=== PATIENT | female | born 2000 | race Caucasian/White ===

== ENCOUNTER → 2021-04-10 13:21 | Outpatient (BNVA) | payer BC, MEDICAID, SELFPAY | PROVIDERS: Visit Provider Obstetrics & Gynecology | DX: O20.9 Hemorrhage in early pregnancy, unspecified (principal) | CPT/HCPCS: 84702; 86850; 86900 ==

== ENCOUNTER 2021-04-12 11:12 | Outpatient (CLI) | payer BC, MEDICAID, SELFPAY ==
--- NOTE | 2021-04-12 11:21 | US_ITS ---
WS: [id number] EARLY OBSTETRICAL ULTRASOUND (<14 WEEKS). HISTORY: SUPERVISION OF NORMAL COMPARISON: None available. Single intrauterine gestational sac is identified. Cardiac activity at 122 BPM. [place]-rump length gopi sures 0.9 cm which corresponds to a gestation of 6w6d. Normal-appearing yolk sac and amnion demonstra elliot. No subchorionic hemorrhage. No free fluid. Normal size ovaries with no mass. Small corpus luteum cyst associated with the LEFT ovary. US/US OB <=14 wk fetus w transvag IMPRESSION: 1. Single intrauterine gestation of 7 weeks 0 days with an EDC of 11/29/2021. 2. No complications. Normal cardiac activity.
== END 2021-04-12 11:13 | disposition home or self-care (01) ==
LOC: RAD 11:13
PROVIDERS: Visit Provider Obstetrics & Gynecology
DX: Z34.91 Encounter for supervision of normal pregnancy, unspecified, first trimester (principal); Z3A.01 Less than 8 weeks gestation of pregnancy
CPT/HCPCS: 76801; 76817

== ENCOUNTER → 2021-04-23 09:33 | Outpatient (BNVA) | payer BC, MEDICAID, SELFPAY | PROVIDERS: Visit Provider Nurse Practitioner Women's Health | DX: Z34.90 Encounter for supervision of normal pregnancy, unspecified, unspecified trimester (principal) | CPT/HCPCS: 81000 ==

== ENCOUNTER → 2021-05-07 11:25 | Outpatient (BNVA) | payer BC, MEDICAID, SELFPAY | PROVIDERS: Visit Provider Obstetrics & Gynecology | DX: O99.211 Obesity complicating pregnancy, first trimester (principal) | CPT/HCPCS: 80307; 81000; 82950; 85027; 86592; 86762; 86803; 87086; 87340; 87806 ==

== ENCOUNTER → 2021-05-21 12:20 | Outpatient (BNVA) | payer BC, MEDICAID, SELFPAY | PROVIDERS: Visit Provider Obstetrics & Gynecology | DX: Z34.80 Encounter for supervision of other normal pregnancy, unspecified trimester (principal) | CPT/HCPCS: 81000; 87491; 87591; 88175 ==

== ENCOUNTER → 2021-06-21 14:28 | Outpatient (BNVA) | payer BC, MEDICAID, SELFPAY | PROVIDERS: Visit Provider Obstetrics & Gynecology | DX: O99.211 Obesity complicating pregnancy, first trimester (principal) | CPT/HCPCS: 81000 ==

== ENCOUNTER → 2021-07-17 15:09 | Outpatient (BNVA) | payer BC, MEDICAID, SELFPAY | PROVIDERS: Visit Provider Obstetrics & Gynecology | DX: Z34.80 Encounter for supervision of other normal pregnancy, unspecified trimester (principal) | CPT/HCPCS: 81000 ==

== ENCOUNTER → 2021-08-09 08:06 | Outpatient (BNVA) | payer BC, MEDICAID, SELFPAY | PROVIDERS: Visit Provider Nurse Practitioner Women's Health | DX: O99.211 Obesity complicating pregnancy, first trimester (principal) | CPT/HCPCS: 81000 ==

== ENCOUNTER → 2021-09-11 13:59 | Outpatient (BNVA) | payer BC, MEDICAID, SELFPAY | PROVIDERS: Visit Provider Obstetrics & Gynecology | DX: Z34.80 Encounter for supervision of other normal pregnancy, unspecified trimester (principal) | CPT/HCPCS: 81000; 82950; 85027 ==

== ENCOUNTER → 2021-10-08 10:18 | Outpatient (BNVA) | payer BC, MEDICAID, SELFPAY | PROVIDERS: Visit Provider Nurse Practitioner Women's Health | DX: O99.211 Obesity complicating pregnancy, first trimester (principal); N76.0 Acute vaginitis | CPT/HCPCS: 81000; 87491; 87591; 87661 ==

== ENCOUNTER → 2021-10-17 08:04 | Outpatient (BNVA) | payer BC, MEDICAID, SELFPAY | PROVIDERS: Visit Provider Nurse Practitioner Women's Health | DX: O99.211 Obesity complicating pregnancy, first trimester (principal); N89.8 Other specified noninflammatory disorders of vagina | CPT/HCPCS: 81000 ==

== ENCOUNTER → 2021-10-31 08:30 | Outpatient (BNVA) | payer BC, MEDICAID, SELFPAY | PROVIDERS: Visit Provider Nurse Practitioner Women's Health | DX: Z34.80 Encounter for supervision of other normal pregnancy, unspecified trimester (principal) | CPT/HCPCS: 81000; 87081 ==

== ENCOUNTER 2021-11-02 15:20 | Outpatient (CLI) | payer BC, MEDICAID, SELFPAY ==
[2021-11-02 15:30] VITALS: BMI 39.1
[2021-11-02 15:39] VITALS: TEMP 36.2
[2021-11-02 15:40] VITALS: BP 115/68; PULSE 108
[2021-11-02 15:53] VITALS: RESP 17
[2021-11-02 16:13] VITALS: BP 110/63; PULSE 75
[2021-11-02 16:20] VITALS: BP 110/63; PULSE 75
== END 2021-11-02 16:20 | disposition home or self-care (01) ==
LOC: OPOB 15:26 → OBGYN 15:27
PROVIDERS: Visit Provider Obstetrics & Gynecology
DX: O26.899 Other specified pregnancy related conditions, unspecified trimester (principal); Z3A.00 Weeks of gestation of pregnancy not specified; R10.9 Unspecified abdominal pain
CPT/HCPCS: 59025; 99211

== ENCOUNTER → 2021-11-11 10:11 | Outpatient (BNVA) | payer BC, MEDICAID, SELFPAY | PROVIDERS: Visit Provider Obstetrics & Gynecology | DX: Z34.80 Encounter for supervision of other normal pregnancy, unspecified trimester (principal) | CPT/HCPCS: 81000 ==

== ENCOUNTER → 2021-11-18 10:19 | Outpatient (BNVA) | payer BC, MEDICAID, SELFPAY | PROVIDERS: Visit Provider Obstetrics & Gynecology | DX: Z34.80 Encounter for supervision of other normal pregnancy, unspecified trimester (principal) | CPT/HCPCS: 81000 ==

== ENCOUNTER 2021-11-25 19:08 | Inpatient (IN) | payer BC, MEDICAID, SELFPAY ==
[2021-11-25] VITALS (11 sets, daily range): BP systolic 116–149; BP diastolic 66–85; PULSE 63–81; RESP 16; TEMP 36.2–36.5; BMI 36.8
[2021-11-25] MEDS: lactated ringers 1,000 ML 999 ML IV (20:10)
[2021-11-25 20:14] LABS: Basophils % 0.3 %; Eosinophils # 0.1 10^3/uL (0.0-0.8); Eosinophils % 0.7 %; Lymphocytes # 2.1 10^3/uL (0.8-4.8); Lymphocytes % 17.3 %; Mean Corpuscular HGB Conc 34.3 g/dL (30.0-36.0); Mean Corpuscular Hemoglobin 31.8 pg (28.0-34.0); Mean Corpuscular Volume 92.8 fl (81-99); Mean Platelet Volume 11.5 fL (7.4-10.4); Monocytes # 0.7 10^3/uL (0.2-0.9); Monocytes % 5.5 %; Neutrophils % 75.7 %; Nucleated Red Blood Cells % 0 %; Platelet Count 212 10^3/cmm (130-400); Red Blood Count 3.77 10^6/uL (4.1-5.3); Red Cell Distribution Width 13.5 % (12.1-15.1); White Blood Count 12.3 10^3/uL (4.0-10.0)
[2021-11-25] MEDS: dextrose 5%-lactated ringers 1,000 ML 125 ML IV (20:45)
[2021-11-25] MEDS: miSOPROStol 100 mcg tablet 25 MCG VAGINAL (21:00)
[2021-11-26] VITALS (100 sets, daily range): BP systolic 76–146; BP diastolic 47–91; PULSE 50–141; RESP 16–18; TEMP 35.3–37.4; O2SAT 97–100
[2021-11-26] MEDS: lactated ringers 1,000 ML 999 ML IV ×3 (02:00→08:57)
[2021-11-26] MEDS: oxytocin 30 UNIT/500 ML BAG IV (06:33)
--- NOTE | 2021-11-26 07:52 | PM.OPHPUD ---
Labor & Delivery H&P Update Date of Procedure: November 26, 2021 Date H&P Performed: 11/25/21 H&P update information: I have reviewed H&P completed within last 30 days, I have examined patient prior to procedure, Changes to prior documentation as noted here and H&P is in [facility] EMR on date indicated Changes to previous documentation: Cervix is 4 cm 70% and -2 station, COVID-negative Admission Diagnosis:
--- NOTE | 2021-11-26 08:42 | P.ANESASSM_ITS ---
Pre-Anesthetic Assessment Pre-Anesthetic Assessment: Height/Weight: Height 1.73 m Weight 109.769 kg Temp Pulse Resp BP 97.7 F 74 16 125/75 11/26/21 05:45 11/26/21 08:27 11/25/21 19:30 11/26/21 08:27 Preop Diagnosis: Labor pain Was Beta Asif taken within 24 hours: N/A Was Clonidine taken within 24 hours: N/A Last intake: 11/26 Social: Social History: No alcohol and No tobacco Exam: Pre-Anes Outpt Exam: alert, oriented x 3, clear to auscultation bilaterally and regular rate & rhythm Airway: Submandibular: WNL Cervical ROM: WNL MP: 2 Dentition: Full Pulmonary: Pulmonary: None reported CV/HEM: CV/HEM: None reported : : None reported Hepatic: Hepatic: None reported GI: GI: GERD Metabolic: Metabolic: None reported Musc/skel: Musc/skel: None reported Neuropsych: Neuropsych: None reported Anesthetic Plan: ASA status: 2 Anesthesia: Anesthesia Evaluation, Eval. for regional block and Regional (specify below) (Epidural) Risk of > 500 ml blood loss (7ml/kg in children): No Meds/Allergies Current Medications: Current Medications Generic Name Dose Route Start Last Admin Trade Name Freq PRN Reason Stop Dose Admin Dextrose/Lactated Ringer's 1,000 mls @ 125 m ls/hr 11/25/21 19:30 11/25/21 20:45 Dextrose 5%-Lact ated Ringers IV 125 mls/hr .Q8H PRN Administration per label comment s Oxytocin 30 unit in 500 ml s @ 1 mls/hr 11/26/21 06:15 11/26/21 06:50 Pitocin IV 3 milliunit/min .Q24H SLAVA 3 mls/hr Titration Protocol 1 MILLIUNIT/MIN Misoprostol 25 mcg 11/25/21 21:00 11/25/21 21:00 Misoprostol 100 Mcg Tablet VAGINAL 11/26/21 09:01 25 mcg Q4H SLAVA Administration PFSH Anesthesia PFSH: Medical History No pertinent past medical history Denies diabetes, asthma, hypertension, seizures, DVT/PE PCP: Dr. Smotherman Surgical History No pertinent past surgical history Family History Grandfather Diabetes Paternal Hypertension Paternal Denies family history of Colon cancer Ovarian cancer Heart disease Hypercholesteremia Breast cancer Uterine cancer Thyroid disease Stroke Female Reproductive History: Date of last menstrual period: 02/14/21 : 2 Data Anesthesia CBC & Chem 7: 11/25/21 20:05 Other Labs: Laboratory Results - last 48 hr 11/25/21 20:05 WBC 12.3 H RBC 3.77 L Hgb 12.0 Hct 35.0 L MCV 92.8 MCH 31.8 MCHC 34.3 RDW 13.5 Plt Count 212 MPV 11.5 H Neut % (Auto) 75.7 Lymph % (Auto) 17.3 [place] % (Auto) 5.5 Eos % (Auto) 0.7 Baso % (Auto) 0.3 Neut # (Auto) 9.30 H Lymph # (Auto) 2.1 [place] # (Auto) 0.7 Eos # (Auto) 0.1 Baso # (Auto) 0.0 Nucleated RBC % (auto) 0 Nucleated RBCs # 0.0 Cardiac Studies: No Data to Display
--- NOTE | 2021-11-26 09:45 | ANES.PROC ---
Anesthesia Procedures Procedure/Date: 11/26/21 Epidural: Time Out Performed: Yes ([id number]) Consents Signed: Procedure Consent Consent: from patient Lumbar Level: L4-L5 Epidural position: sitting Epidural procedure: sterile prep of area (Chloraprep), negative for paresthesia passed, neg for paresthesia, 1.5% xylocaine 1:200k epi, 0.2% Ropivacaine bolus ml, no systemic response, sterile dressing applied and 0.2% Ropiavacaine @ mls/hr (13) Additional Comments: Patient sat up, prepped and draped in usual fashion. LA skin wheel, Touhy w/ stylet, ligament engaged, using EILEEN technique w/ saline loss at 8 cm, catheter to 14 cm. Negative aspiration, negative test dose. 1 attempt, tolerated well, good block.
[2021-11-26] MEDS: dextrose 5%-lactated ringers 1,000 ML 125 ML IV (12:47)
[2021-11-26] MEDS: ondansetron 2 mg/ML SDV 2 mL 4 MG IVP (13:25)
[2021-11-26] MEDS: lidocaine 2% INJ 20 mL INJECTION (17:10)
--- NOTE | 2021-11-26 17:57 | PM.DELIVERY ---
Delivery Note: Date of delivery: November 26, 2021 - PRE-DELIVERY DIAGNOSIS: 21-year-old 2 para 0-0-1-0 at 39 weeks and 3 days gestation GBS negative, COVID-negative Elective induction of labor at term Obesity with a BMI of 36 POST-DELIVERY DIAGNOSIS: Vaginal delivery on 11/26/2021 PROCEDURE: Vaginal delivery on 11/26/2021 ANESTHESIA: Epidural anesthesia, local anesthesia with 2% lidocaine DELIVERING PHYSICIAN: Nicholas Hanson FACOG PRE-DELIVERY COURSE: Ms. grey is a 21-year-old 2 para 0-0-1-0 at 39 weeks and 3 days who presented to labor and delivery on 11/25/2021 for elective induction of labor. She had no new complaints at time of induction. Cervix was 2 cm, 60% and -2 station unchanged from her previous visit. tracing was category 1 and she had occasional contractions. Induction was started with Cytotec placed at 9 PM. After that she started to have irregular contractions but did not make cervical change but was ifeoma too frequently for Cytotec. She was observed until 6 AM and when she made no further cervical change she was started on Pitocin titrated to a maximum of 17 mIU. With this she started to have regular contractions and growing uncomfortable. Artificial rupture of membranes was performed at 7:09 AM on 11/26/2021 with clear fluid at which time she was 3 to 4 cm, 70% and -2 station, head was well applied. Clear fluid was noted. Epidural was placed shortly after this and she was comfortable. tracing remained category 1. She made progressive cervical change and was 9 cm at 2 PM and fully dilated at 3:24 PM. She was allowed to labor down for about 30 minutes and then set up in lithotomy position ready to push. tracing was category 1 until she started pushing when she had variables. DELIVERY NOTE: She was set up in lithotomy position and was pushing effectively. She was noted to be +3 station and continued pushing well. Perineum was noted to be tight and was staring and decision was made to place an episiotomy. After infiltrating the area with 2% lidocaine the right mediolateral episiotomy was cut without any difficulty. Following this with her next push the head delivered in DELPHINE position, nuchal cord x1 was present which was reduced without any difficulty. The shoulders and rest of the body followed with her next push. The baby's mouth and nose were suctioned and the baby was placed on the mother's belly. Once cord pulsations stopped the cord was clamped and cut. The placenta delivered spontaneously intact with membranes and was discarded. The fundus was noted to be firm and well contracted. The vagina and cervix were inspected and no cervical or sulcal lacerations were noted. The perineum was intact except for the medial lateral episiotomy which was repaired with 3-0 Vicryl in a continuous interlocking fashion. Good hemostasis and reapproximation was obtained. Baby girl, Moe born at 5:02 PM on 11/26/2021 with 8, 8, weighing 7 pounds 7 ounces, 3365 g, 20-1/2 inches long. Placenta was delivered spontaneously intact with membranes. Cotyledons were intact , centrally inserted umbilical cord with 3 vessels noted. Estimated blood loss 350 mL. Complications-none, both baby and mother were left to recover in a stable condition. This documentation was created by [employer] secondary history teacher software (known for inherent secondary history teacher error). Every effort was made to assure accuracy of secondary history teacher. Any obvious errors or omissions should be clarified with the author of the document. History History History 2 Term 1 Miscarriages/Ectopic 1 0 Living Children 1 Other History: 2, Para 1011 SAB x 1 X 1 1--> 06/2020, SAB at 5 weeks gestation, no D&C required 2--> 11/26/2021---> full-term vaginal delivery at 39 weeks and 4 days after induction. [place] [facility] [place] Baby girl(Moe) weighing 7 pounds 7 ounces over right mediolateral episiotomy. No complications. Coding Level of Care Code Acute Patient Account Representative for Toñog Renu
[2021-11-26] MEDS: benzocaine-menthol 78 gm Canister 1 SPRAY TOPICAL (21:06)
[2021-11-26] MEDS: ibuprofen 800 mg tablet PO (21:07)
[2021-11-26] MEDS: lanolin oint 7 gm 1 APPLIC TOPICAL (21:07)
[2021-11-26] MEDS: docusate sodium 100 mg Capsule PO (21:07)
[2021-11-27 01:18] VITALS: BP 115/65; PULSE 66; RESP 16; TEMP 36.4; O2SAT 97
[2021-11-27 05:53] LABS: Hematocrit 32.6 % (37.0-47.0); Mean Corpuscular HGB Conc 33.7 g/dL (30.0-36.0); Mean Corpuscular Hemoglobin 31.9 pg (28.0-34.0); Mean Corpuscular Volume 94.5 fl (81-99); Mean Platelet Volume 11.8 fL (7.4-10.4); Platelet Count 182 10^3/cmm (130-400); Red Blood Count 3.45 10^6/uL (4.1-5.3); Red Cell Distribution Width 13.7 % (12.1-15.1); White Blood Count 16.2 10^3/uL (4.0-10.0)
[2021-11-27 08:00] VITALS: BP 114/81; PULSE 80; RESP 18; TEMP 36.7
[2021-11-27] MEDS: ibuprofen 800 mg tablet PO ×2 (08:24→15:27)
[2021-11-27] MEDS: docusate sodium 100 mg Capsule PO ×2 (08:24→18:13)
[2021-11-27] MEDS: prenatal vitamin Capsule 1 CAP PO (08:24)
--- NOTE | 2021-11-27 14:05 | ANE.PACU2 ---
Inpatient post-anesthesia follow up: Airway intact: Yes Vital signs: Temperature 98.1 F Pulse Rate 80 Respiratory Rate 18 Blood Pressure 114/81 Pulse Oximetry 97 Oxygen Delivery Me thod Room Air Oxygen Flow Rate Fraction of Inspir ed Oxygen Hydration adequate: Yes Nausea and vomiting: No Pain level: 2 Mental status: Baseline
[2021-11-27 15:00] VITALS: BP 118/82; PULSE 60; RESP 18; TEMP 36.8
--- NOTE | 2021-11-27 17:51 | PM.OBGYDC ---
Discharge Providers AIR COMPRESSOR MECHANIC Date of Admission: 11/26/21 09:05 Date of Discharge: 11/28/21 Attending Provider at Admission: Nicholas Thompson MD Attending Provider at Discharge: Nicholas Thompson MD PRE-DELIVERY DIAGNOSIS: 21-year-old 2 para 0-0-1-0 at 39 weeks and 3 days gestation GBS negative, COVID-negative Elective induction of labor at term Obesity with a BMI of 36 POST-DELIVERY DIAGNOSIS: Vaginal delivery on 11/26/2021 PROCEDURE: Vaginal delivery on 11/26/2021 ANESTHESIA: Epidural anesthesia, local anesthesia with 2% lidocaine DELIVERING PHYSICIAN: Nicholas Hanson FACOG PRE-DELIVERY COURSE: Ms. grey is a 21-year-old 2 para 0-0-1-0 at 39 weeks and 3 days who presented to labor and delivery on 11/25/2021 for elective induction of labor. She had no new complaints at time of induction. Cervix was 2 cm, 60% and -2 station unchanged from her previous visit. tracing was category 1 and she had occasional contractions. Induction was started with Cytotec placed at 9 PM. After that she started to have irregular contractions but did not make cervical change but was ifeoma too frequently for Cytotec. She was observed until 6 AM and when she made no further cervical change she was started on Pitocin titrated to a maximum of 17 mIU. With this she started to have regular contractions and growing uncomfortable. Artificial rupture of membranes was performed at 7:09 AM on 11/26/2021 with clear fluid at which time she was 3 to 4 cm, 70% and -2 station, head was well applied. Clear fluid was noted. Epidural was placed shortly after this and she was comfortable. tracing remained category 1. She made progressive cervical change and was 9 cm at 2 PM and fully dilated at 3:24 PM. She was allowed to labor down for about 30 minutes and then set up in lithotomy position ready to push. tracing was category 1 until she started pushing when she had variables. DELIVERY NOTE: She was set up in lithotomy position and was pushing effectively. She was noted to be +3 station and continued pushing well. Perineum was noted to be tight and was staring and decision was made to place an episiotomy. After infiltrating the area with 2% lidocaine the right mediolateral episiotomy was cut without any difficulty. Following this with her next push the head delivered in DELPHINE position, nuchal cord x1 was present which was reduced without any difficulty. The shoulders and rest of the body followed with her next push. The baby's mouth and nose were suctioned and the baby was placed on the mother's belly. Once cord pulsations stopped the cord was clamped and cut. The placenta delivered spontaneously intact with membranes and was discarded. The fundus was noted to be firm and well contracted. The vagina and cervix were inspected and no cervical or sulcal lacerations were noted. The perineum was intact except for the medial lateral episiotomy which was repaired with 3-0 Vicryl in a continuous interlocking fashion. Good hemostasis and reapproximation was obtained. Baby girl, Moe born at 5:02 PM on 11/26/2021 with 8, 8, weighing 7 pounds 7 ounces, 3365 g, 20-1/2 inches long. Placenta was delivered spontaneously intact with membranes. Cotyledons were intact , centrally inserted umbilical cord with 3 vessels noted. Estimated blood loss 350 mL. Complications-none, both baby and mother were left to recover in a stable condition. HOSPITAL COURSE: She underwent an uncomplicated vaginal delivery on 11/26/2021. She did well on day 0 and was ambulating well, tolerating regular diet, voiding freely, passing flatus. She was breast-feeding without difficulty and bonding well with her daughter. Pain was well-controlled with by mouth pain medication. She denied nausea, vomiting, fever, chills, shortness of breath, leg pain. She had moderate vaginal bleeding. On day # 1 she continued to do well with stable vital signs and stable hemoglobin at 11. She was discharged home on day 1 in a stable condition, as she desired early discharge. Warning signs for endometritis, mastitis, DVT/PE were reviewed with her. Post delivery activity restrictions were also reviewed with her at all her questions were answered to her satisfaction. Plans on using natural methods for contraception . EXAM AT DISCHARGE: Gen.: No acute distress Heart: S1-S2 heard, regular rate and rhythm Lungs: Clear to auscultation bilaterally Abdomen: Soft, fundus firm below umbilicus. Legs: No calf tenderness, plus 1 bilateral pitting pedal edema. CONDITION AT DISCHARGE: Stable This documentation was created by [employer] professional skater software (known for inherent professional skater error). Every effort was made to assure accuracy of professional skater. Any obvious errors or omissions should be clarified with the author of the document. Reason for Visit Reason for Visit: induction Information Peripartum Data: Infant Delivery Method: Vaginal History History History 2 Term 1 Miscarriages/Ectopic 1 0 Living Children 1 Other History: 2, Para 1011 SAB x 1 X 1 1--> 06/2020, SAB at 5 weeks gestation, no D&C required 2--> 11/26/2021---> full-term vaginal delivery at 39 weeks and 4 days after induction. Delivered by Dr. Hanson at [facility] [place]. Baby girl(Moe) weighing 7 pounds 7 ounces over right mediolateral episiotomy. No complications. Discharge Data Data Completed and Pending: Labs from last 24 hours 11/27/21 05:40 WBC 16.2 H RBC 3.45 L Hgb 11.0 L Hct 32.6 L MCV 94.5 MCH 31.9 MCHC 33.7 RDW 13.7 Plt Count 182 MPV 11.8 H Vitals: Last Vital Signs Temp 98.3 F 11/27/21 15:00 Pulse 60 11/27/21 15:00 Resp 18 11/27/21 15:00 BP 118/82 11/27/21 15:00 Pulse Ox 97 11/27/21 01:18 Discharge Plan Discharge Patient Disposition: Home Condition: Stable Prescriptions: New ibuprofen 800 mg tablet 800 mg PO Q8H Qty: 30 RF: 0 hydrocodone-acetaminophen 5-325 mg tablet 1 tab PO Q6H Qty: 25 RF: 0 docusate sodium 100 mg Capsule 100 mg PO BID PRN (Reason: constipation) Qty: 30 RF: 0 Continued prenat.vits,thomas,[id number] Tablet 1 tab PO DAILY RF: 0 (DME) breast pump [Pump In Style Advanced] Device See Rx Instructions .MEDSUPPLY Qty: 1 RF: 0 Discharge Orders: Discharge Order (Routine); Ordered 11/27/21 Ordered By: Nicholas Thompson Referrals: Nicholas Thompson MD [Physician] - 12/31/21 11:30 am (* Your 6 week appointment is on 12/31/2021 at 11:30) Patient Instructions: Depression (DC), Bleeding (DC), Preeclampsia and Eclampsia After Delivery (GEN), Vaginal Delivery (DC), OB Discharge Report, OB Food/Drug Interaction Guide, Opioid Safety, OB Home Care, OB Proud Parent Packet Activity Restrictions/Additional Instructions: pelvic rest for 6 weeks , no heavy lifitng for 6 weeks f/u in 6 weeks for pp visit Discharge Attestations AIR COMPRESSOR MECHANIC Time Spent in Discharge Care*: greater than 30 min Coding Level of Care Code Acute Detective Captain for Toñog Renu
[2021-11-27 18:45] VITALS: BP 120/79; PULSE 80; RESP 18; TEMP 36.8
== END 2021-11-27 18:50 | disposition home or self-care (01) | DRG 807 ==
LOC: OBGYN 19:13
PROVIDERS: Admitting Provider Obstetrics & Gynecology; Visit Provider Obstetrics & Gynecology
DX: O99.214 Obesity complicating childbirth (principal); Z37.0 Single live birth; Z3A.39 39 weeks gestation of pregnancy
CPT/HCPCS: 36415; 59025; 59409; 81000; 85025; 85027; 87635; 99211; G0378; J2405; J2795